=== PATIENT | male | born 1980 | race Caucasian/White ===

== ENCOUNTER 2021-01-24 21:47 | Emergency (ER) | payer OTHER ==
[~2021-01-24 21:47] MED LIST: ASACOL HD800 MG PO; AUGMENTIN 875-1 EACH PO; AZATHIOPRINE50 MG PO; HYDROCODON-ACE1 EAC4 PO; K-DUR20 MEQ PO; MEDROL 4MG DOSEP4 MG PO; NEURONTIN100 MG PO; NORCO 5-325 TA1 EACH PO; REMICADE100 MG PO; ZANAFLEX2 MG PO
[2021-01-24 22:42] LABS: BASOPHIL 0.5 % (0-2); EOSINOPHIL 3.2 % (0-5); HCT 44.9 % (42.0-52.0); HGB 14.8 g/dl (13.2-18.0); LYMPHOCYTE 12.3 % (15-48); MCH 27.9 pg (25.0-31.0); MCV 84.6 fL (78.0-100.0); MONOCYTE 6.2 % (0-12); MPV 9.8 fL (6.0-9.5); NEUTROPHIL 77.1 % (41-80); NRBC 0; PLT 367 K/uL (150-400); RBC 5.31 M/uL (4.70-6.00); RDW 13.3 % (11.5-14.0); WBC 18.9 K/uL (4.0-10.5)
[2021-01-24 23:20] LABS: ALBUMIN 3.5 g/dL (3.4-5.0); BILIRUBIN - TOTAL 0.5 mg/dL (0.2-1.0); BUN/CREAT RATIO (CALC) 7.1 RATIO; CREATININE 1.41 mg/dL (0.67-1.17); GLOBULIN (CALCULATION) 4.1 g/dL; POTASSIUM 3.7 mmol/L (3.5-5.1); TOTAL PROTEIN 7.6 g/dL (6.4-8.2)
[2021-01-25 00:35] LABS: BILIRUBIN NEGATIVE (NEGATIVE); BLOOD NEGATIVE Ery/uL (NEGATIVE); CLARITY CLEAR (CLEAR); COLOR YELLOW (YELLOW); GLUCOSE (U) NORMAL (NORMAL); LEUKOCYTES NEGATIVE Leu/uL (NEGATIVE); NITRITE NEGATIVE (NEGATIVE); PROTEIN TRACE (LOW) mg/dL (NEGATIVE); SPECIFIC GRAVITY 1.015 (1.001-1.030); UROBILINOGEN 0.2 mg/dL (0.2-1.0); pH 5.5 (5.0-9.0)
[2021-01-25 00:41] LABS: SQUAMOUS EPITHELIAL CELLS RARE
== END 2021-01-25 14:22 | disposition other institution (70) ==
LOC: FER 21:47
PROVIDERS: Emergency Medicine
DX: K50.90 Crohn's disease, unspecified, without complications (principal); U07.1 COVID-19; Z88.8 Allergy status to other drugs, medicaments and biological substances; Z98.890 Other specified postprocedural states
CPT/HCPCS: 36415; 80053; 81001; 83605; 83690; 85025; 87040; J1170; J2270; J2405; J2543; J3480; J7040; Q9967; U0002

== ENCOUNTER 2021-03-26 05:00 | Emergency (ER) | payer OTHER ==
[2021-03-26 06:15] LABS: BASOPHIL 0.4 % (0-2); EOSINOPHIL 3.9 % (0-5); HCT 37.5 % (42.0-52.0); HGB 11.8 g/dl (13.2-18.0); LYMPHOCYTE 13.7 % (15-48); MCH 26.4 pg (25.0-31.0); MCHC 31.5 g/dL (32.0-36.0); MCV 83.9 fL (78.0-100.0); MONOCYTE 7.2 % (0-12); MPV 9.2 fL (6.0-9.5); NEUTROPHIL 73.1 % (41-80); NRBC 0; PLT 321 K/uL (150-400); RBC 4.47 M/uL (4.70-6.00); RDW 15.3 % (11.5-14.0); WBC 16.6 K/uL (4.0-10.5)
[2021-03-26 06:41] LABS: ALBUMIN 2.6 g/dL (3.4-5.0); BILIRUBIN - TOTAL 0.3 mg/dL (0.2-1.0); BUN/CREAT RATIO (CALC) 11.1 RATIO; CREATININE 1.35 mg/dL (0.67-1.17); GLOBULIN (CALCULATION) 3.9 g/dL; POTASSIUM 3.2 mmol/L (3.5-5.1); TOTAL PROTEIN 6.5 g/dL (6.4-8.2)
[2021-03-26 06:45] LABS: LACTIC ACID 0.9 mmol/L (0.4-1.9)
[2021-03-26 06:50] LABS: BILIRUBIN NEGATIVE (NEGATIVE); BLOOD NEGATIVE Ery/uL (NEGATIVE); CLARITY CLEAR (CLEAR); COLOR YELLOW (YELLOW); GLUCOSE (U) NORMAL (NORMAL); LEUKOCYTES NEGATIVE Leu/uL (NEGATIVE); NITRITE NEGATIVE (NEGATIVE); PROTEIN 1+ mg/dL (NEGATIVE); UROBILINOGEN 0.2 mg/dL (0.2-1.0)
[2021-03-26 06:57] LABS: URINARY RBC RARE; URINARY WBC RARE
== END 2021-03-26 10:20 | disposition other institution (70) ==
LOC: FER 05:00
PROVIDERS: Emergency Medicine
DX: K50.90 Crohn's disease, unspecified, without complications (principal); Z20.822 Contact with and (suspected) exposure to COVID-19
CPT/HCPCS: 36415; 80053; 81001; 83605; 83690; 84145; 85025; 87040; J1170; J2270; J2405; Q9967; U0002